=== PATIENT | male | born 1950 | race Caucasian/White ===

== ENCOUNTER → 2019-03-14 | Outpatient (CLI) | payer OTHER ==
[~2019-03-14] VITALS: Ht 172.7 cm; Wt 74.8 kg
[~2019-03-14] MED LIST: ASPIRIN325 PO; ATORVASTATIN CA40 MG PO; AVAPRO300 MG PO; CLOMIPHENE CITR50 MG PO; COZAAR; DOXYCYCLINE 10100 MG PO; EFFIENT10 MG PO; GLIPIZIDE ER2.5 MG PO; GUANFACINE HCL1 MG PO; HUMALOG KW100 UNIT/1 SUBQ; INVOKANA300 MG PO; JANUMET 50-1,01 EACH PO; JARDIANCE10 MG PO; LEVEMIR SUBQ; LEVOTHROID150 MC1 PO; LISINOPRIL20 MG PO; MELOXICAM7.5 MG PO; METOPROLOL SUCC25 M1 PO; NOVOLOG100 UNIT/1 SC; PRAVACHOL40 M1 PO; PREDNISONE 20 M20 MG PO; PRINZIDE 20-121 EACH PO; SYNTHROID150 MCG PO; TRESIBA100 UNIT/1; TRESIBA100 UNIT/1 SUBQ; VIBRAMYCIN 100100 MG PO; ZESTRIL20 MG PO
[2019-03-14 07:07] VITALS: BP 156/69
[2019-03-14 07:10] LABS: HEMATOCRIT 41.3 % (42.0-52.0); HEMOGLOBIN 13.7 gm/dL (14.0-18.0); MCH 30.6 pg (26.0-34.0); MCV 92.5 fL (80.0-100.0); RBC 4.47 mil/uL (4.50-6.00); RDW 13.5 % (10.5-14.5); WBC 7.3 thou/uL (4.0-11.0)
[2019-03-14 07:23] LABS: CALCIUM 8.8 mg/dL (8.5-10.1)
--- NOTE | 2019-03-14 07:45 | EKG ---
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 MYERS : 1950 Requested By: Sathya Benton Order Number: [id number] MD: Des Talbot Measurements Intervals [place] Rate: 67 P: 29 DE: 166 QRS: 1 QRSD: 73 T: 24 QT: 409 QTc: 432 Interpretive Statements Sinus rhythm Small inferior Q waves Compared to ECG 07/29/2016 06:35:58 Myocardial infarct finding now present no significant change was found Electronically Signed On 03-14-2019 7:44:52 CDT by Des Talbot [email or web address] <ELECTRONICALLY SIGNED> By: Des Talbot MD, [facility] 03/14/1946 2 2 Des Talbot MD, [facility] /EPI
--- NOTE | 2019-03-14 14:15 | CATHLAB ---
[facility] [address] [place] [address] INVASIVE PROCEDURE REPORT Name: SARAH GARCIA Room #: REG [facility]#: [id number] Admission: 03/14/19 Attend Phys: Sathya Benton, Discharge: Date of : 46 Report #: [id number] THIS REPORT FOR: //name// APPROVED REPORT Study performed: 03/14/2019 08:06:34 Patient Details Patient Status: Out-Patient Room #: The patient is a 68 year-old male Event Personnel Sathya Benton Asp Net Mvc Developer, Oni Young RN, Afsaneh Nichole RN RN, Jen Goetz RTR, BART Stanley, Bethel Allen Radiologist Procedures Performed Art Access - R femoral artery* Left Heart Cath w/LT VGram [id number] LHCLV 07513 Initial Mod Sed Same Phys/QHP Gr5y [id number] 33787 Mod Sed Same Phys/QHP Ea [id number] Hemostasis w/ Mynx Indication Chest pain Procedure Narrative The Right Groin^ was infiltrated with 1% Lidocaine subcutaneous anesthesia. A PINNACLE 6FR Sheath #[id number] sheath was inserted into the RFA^. Coronary angiography was performed using coronary diagnostic catheters. The right coronary system was accessed and visualized with a JR4 catheter. The left coronary system was accessed and visualized with a JL4 catheter. The left ventricle was accessed and visualized with a STR.PIG catheter. Closure device was deployed with a Fr MYNXGRIP 6/7F #[id number]. The patient tolerated the procedure well and there were no complications associated with the procedure. There was no hematoma. Intraoperative Conscious Sedation Sedation start time: 840 Case end Time: 1000 Fentanyl 200 mcg Versed 3 mg Fluoro Time: 7.25 minutes Dose: DAP 05453.40 cGycm2 1064 mGy Contrast Type and Amount: Omnipaque 180 ml [facility] [place] [address] INVASIVE PROCEDURE REPORT Name: SARAH GARCIA NATO Room #: REG [place]#: [id number] Admission: 03/14/19 Attend Phys: Sathya Benton, Discharge: Date of : 46 Report #: [id number] Hemodynamics The aortic pressure is 160/59 mmHg with a mean of 101 mmHg. The left ventricular pressure is 155/11 mmHg with a mean of mmHg. The left ventricular end diastolic pressure is 28 mmHg. Conclusion #1 normal left jugular size and systolic function EF 60% #2 LAD with mild ostial disease 30% range giving rise to LAD and circumflex #3 LAD is mildly calcified proximally with no significant occlusive disease. #4 circumflex OM previously placed stent is widely patent in the mid vessel filling one moderate size OM branch widely patent #5 dominant right coronary with mild irregularities with PDA DEEPTHI well preserved Recommendations and plan: Continue aggressive risk factor modification. No indication for coronary intervention. Carotid angiogram to follow see Dr. Allen dictation. <ELECTRONICALLY SIGNED> By: Sathya Benton MD, FACC 03/14/19 1415 14 14 Sathya Benton MD, FACC /INF
== END | disposition home or self-care (01) ==
LOC: CATH 06:18
PROVIDERS: Internal Medicine Cardiovascular Disease
DX: R07.9 Chest pain, unspecified (principal); I25.10 Atherosclerotic heart disease of native coronary artery without angina pectoris; I65.21 Occlusion and stenosis of right carotid artery; I70.213 Atherosclerosis of native arteries of extremities with intermittent claudication, bilateral legs; I70.1 Atherosclerosis of renal artery; I10 Essential (primary) hypertension; E11.9 Type 2 diabetes mellitus without complications; E03.9 Hypothyroidism, unspecified; M19.90 Unspecified osteoarthritis, unspecified site; Z96.653 Presence of artificial knee joint, bilateral; Z98.890 Other specified postprocedural states; Z79.899 Other long term (current) drug therapy; Z79.4 Long term (current) use of insulin; Z87.891 Personal history of nicotine dependence; Z88.8 Allergy status to other drugs, medicaments and biological substances

== ENCOUNTER → 2019-08-07 | Outpatient (CLI) | payer OTHER | LOC: SJCVC 15:03 | DX: I25.10 Atherosclerotic heart disease of native coronary artery without angina pectoris (principal); I10 Essential (primary) hypertension; E78.00 Pure hypercholesterolemia, unspecified; E11.52 Type 2 diabetes mellitus with diabetic peripheral angiopathy with gangrene; Z79.4 Long term (current) use of insulin; Z79.82 Long term (current) use of aspirin; Z79.899 Other long term (current) drug therapy ==

== ENCOUNTER → 2020-04-03 | Outpatient (CLI) | payer OTHER ==
[~2020-04-03] MED LIST changes: +ASA81BEC PO; +LIPITOR40 MG PO; +NAPROXEN SODIU220 M2 PO; +PLAVIX 75 MG TA75 MG PO
== END ==
LOC: SJCVCIMAG 09:42
PROVIDERS: ATTEND Internal Medicine Cardiovascular Disease
DX: I65.23 Occlusion and stenosis of bilateral carotid arteries (principal); I70.203 Unspecified atherosclerosis of native arteries of extremities, bilateral legs; I77.9 Disorder of arteries and arterioles, unspecified; I25.10 Atherosclerotic heart disease of native coronary artery without angina pectoris; I10 Essential (primary) hypertension; E11.9 Type 2 diabetes mellitus without complications; E78.00 Pure hypercholesterolemia, unspecified; Z95.5 Presence of coronary angioplasty implant and graft; Z79.4 Long term (current) use of insulin; Z79.899 Other long term (current) drug therapy

== ENCOUNTER → 2020-04-07 | Outpatient (CLI) | payer OTHER ==
[~2020-04-07] VITALS: Ht 172.7 cm; Wt 79.4 kg
[2020-04-07 07:17] VITALS: BP 140/69
[2020-04-07 07:47] LABS: HEMATOCRIT 41.9 % (42.0-52.0); HEMOGLOBIN 13.6 gm/dL (14.0-18.0); MCH 30.9 pg (26.0-34.0); MCHC 32.4 g/dL (28.0-37.0); MCV 95.2 fL (80.0-100.0); RBC 4.4 mil/uL (4.50-6.00); RDW 13.5 % (10.5-14.5); WBC 7.1 thou/uL (4.0-11.0)
[2020-04-07 08:10] LABS: CALCIUM 8.6 mg/dL (8.5-10.1); CREATININE 1.3 mg/dL (0.7-1.3); POTASSIUM 4.5 mmol/L (3.5-5.1)
== END | disposition home or self-care (01) ==
LOC: CATH 06:43
PROVIDERS: ATTEND Nuclear Medicine Nuclear Cardiology
DX: I70.212 Atherosclerosis of native arteries of extremities with intermittent claudication, left leg (principal); I70.1 Atherosclerosis of renal artery; I10 Essential (primary) hypertension; E11.9 Type 2 diabetes mellitus without complications; E03.9 Hypothyroidism, unspecified; I25.10 Atherosclerotic heart disease of native coronary artery without angina pectoris; E78.00 Pure hypercholesterolemia, unspecified; M19.90 Unspecified osteoarthritis, unspecified site; D64.9 Anemia, unspecified; Z96.653 Presence of artificial knee joint, bilateral; Z79.4 Long term (current) use of insulin; Z98.890 Other specified postprocedural states; Z79.899 Other long term (current) drug therapy; Z87.891 Personal history of nicotine dependence; Z88.8 Allergy status to other drugs, medicaments and biological substances

== ENCOUNTER → 2020-04-10 | Outpatient (CLI) | payer OTHER ==
[~2020-04-10] VITALS: Ht 172.7 cm; Wt 79.4 kg
[2020-04-10 09:35] VITALS: BP 135/75
== END | disposition home or self-care (01) ==
LOC: CATH 07:36
PROVIDERS: ATTEND Nuclear Medicine Nuclear Cardiology
DX: I70.211 Atherosclerosis of native arteries of extremities with intermittent claudication, right leg (principal); M79.604 Pain in right leg; E11.9 Type 2 diabetes mellitus without complications; I25.10 Atherosclerotic heart disease of native coronary artery without angina pectoris; E03.9 Hypothyroidism, unspecified; M19.90 Unspecified osteoarthritis, unspecified site; D64.9 Anemia, unspecified; Z96.653 Presence of artificial knee joint, bilateral; Z98.890 Other specified postprocedural states; Z79.899 Other long term (current) drug therapy; Z79.4 Long term (current) use of insulin; Z88.8 Allergy status to other drugs, medicaments and biological substances

== ENCOUNTER → 2020-07-28 | Outpatient (CLI) | payer OTHER | LOC: SJCVCINTER 08:23 | PROVIDERS: ATTEND Nuclear Medicine Nuclear Cardiology | DX: I70.203 Unspecified atherosclerosis of native arteries of extremities, bilateral legs (principal); I77.9 Disorder of arteries and arterioles, unspecified; I25.10 Atherosclerotic heart disease of native coronary artery without angina pectoris; I10 Essential (primary) hypertension; E78.00 Pure hypercholesterolemia, unspecified; E11.51 Type 2 diabetes mellitus with diabetic peripheral angiopathy without gangrene; E78.5 Hyperlipidemia, unspecified; E03.9 Hypothyroidism, unspecified; Z96.653 Presence of artificial knee joint, bilateral; Z95.828 Presence of other vascular implants and grafts; Z98.890 Other specified postprocedural states; Z95.5 Presence of coronary angioplasty implant and graft; Z88.8 Allergy status to other drugs, medicaments and biological substances; Z79.4 Long term (current) use of insulin; Z79.82 Long term (current) use of aspirin; Z87.891 Personal history of nicotine dependence; Z79.899 Other long term (current) drug therapy ==

== ENCOUNTER → 2021-03-03 | Outpatient (CLI) | payer OTHER | LOC: SJCVCIMAG 09:43 | PROVIDERS: ATTEND Internal Medicine Cardiovascular Disease | DX: R94.31 Abnormal electrocardiogram [ECG] [EKG] (principal); I44.5 Left posterior fascicular block; I65.23 Occlusion and stenosis of bilateral carotid arteries; I70.203 Unspecified atherosclerosis of native arteries of extremities, bilateral legs; I10 Essential (primary) hypertension; E78.00 Pure hypercholesterolemia, unspecified; I25.10 Atherosclerotic heart disease of native coronary artery without angina pectoris; E11.9 Type 2 diabetes mellitus without complications; I77.9 Disorder of arteries and arterioles, unspecified; R06.00 Dyspnea, unspecified; Z95.828 Presence of other vascular implants and grafts; Z95.5 Presence of coronary angioplasty implant and graft; E78.5 Hyperlipidemia, unspecified; E03.9 Hypothyroidism, unspecified; Z79.4 Long term (current) use of insulin; Z79.899 Other long term (current) drug therapy; Z88.8 Allergy status to other drugs, medicaments and biological substances; Z72.89 Other problems related to lifestyle; Z87.891 Personal history of nicotine dependence ==

== ENCOUNTER → 2021-04-27 | Outpatient (CLI) | payer OTHER | LOC: SJCVCIMAG 11:20 | PROVIDERS: ATTEND Internal Medicine Cardiovascular Disease | DX: I25.10 Atherosclerotic heart disease of native coronary artery without angina pectoris (principal); I10 Essential (primary) hypertension; E78.5 Hyperlipidemia, unspecified; R06.00 Dyspnea, unspecified; R53.83 Other fatigue ==